=== PATIENT | female | born 1950 | race Caucasian/White ===

== ENCOUNTER → 2018-07-12 | Outpatient (CLI) | payer MEDICARE, OTHER ==
--- NOTE | 2018-07-19 14:15 | HM ---
HOLTER MONITOR REPORT Patient was monitored for 24 hours. Baseline rhythm is a sinus mechanism with normal conduction. The average rate 59 beats per minute, minimum of 38, maximum 105 beats per minute. Ventricular ectopic activity was present in the form of rare single PVCs. Supraventricular ectopic activity was present in the form of rare single PACs. Symptoms of heartburn, pain in the upper area, indigestion, did not correlate with any dysrhythmia. CONCLUSION: 1. Sinus mechanism baseline rhythm. 2. Rare ventricular ectopic activity. 3. Rare supraventricular ectopic activity. 4. Symptoms did not correlate with any dysrhythmia. MMODL / IJN: [id number] /
== END | disposition home or self-care (01) ==
LOC: RADECHMAIN 12:18
PROVIDERS: ATTEND Family Medicine
DX: R00.1 Bradycardia, unspecified (principal)
CPT/HCPCS: 93225; 93226

== ENCOUNTER → 2019-10-08 | Outpatient (CLI) | payer MEDICARE, OTHER | END | disposition home or self-care (01) | LOC: LABWHC1 13:49 | PROVIDERS: ATTEND Family Medicine | DX: U07.1 COVID-19 (principal) ==

== ENCOUNTER → 2020-09-24 | Outpatient (CLI) | payer MEDICARE, OTHER | END | disposition home or self-care (01) | LOC: RADCTMAIN 16:52 | PROVIDERS: ATTEND Internal Medicine Critical Care Medicine | DX: Z53.9 Procedure and treatment not carried out, unspecified reason (principal) ==

== ENCOUNTER → 2020-09-28 | Outpatient (CLI) | payer MEDICARE, OTHER ==
[2020-09-28 13:57] LABS: African American GFR (CKD) >90 (>60 ml/min/1.73 sqM); Blood Urea Nitrogen 17 mg/dL (7-17); Non-African American GFR(CKD) 90 (>60 ml/min/1.73 sqM)
--- NOTE | 2020-09-28 15:24 | CT ---
EXAMINATION TYPE: CT soft tissue neck w con DATE OF EXAM: 09/28/2020 HISTORY: right side neck mass COMPARISON: NONE CT DLP: 316.6 mGycm. Automated Exposure Control for Dose Reduction was Utilized. TECHNIQUE: CT scan of the neck is performed with IV Contrast, patient injected with 100 mL of Isovue 300, axial images are obtained, coronal and sagittal reformatted images are reviewed. FINDINGS: Airway: Mild to moderate biapical pleural/parenchymal scarring.. Parotid/submandibular glands: Metallic BB placed at level of palpable abnormality right submandibular gland/56. This appears symmetric while the left side and normal in size. No surrounding fat strandin g or inflammatory change. No adjacent concerning solid or cystic mass or fluid collection. Carotid/Vascular Structures: No significant plaque or stenosis carotid bulb level. Osseous Structures: Mild to moderate spurring and disc space narrowing C5-C6 level. Grade 1 anterolis thesis C3 on C4. Moderate disc space narrowing C5-C6 level. Mild anterior spurring C6-C7 level. Other: No suspicious greater than 1 cm neck adenopathy. Scattered subcentimeter lymph nodes throughou t the neck bilaterally. IMPRESSION: No suspicious mass or adenopathy.
== END | disposition home or self-care (01) ==
LOC: RADCTMAIN 13:03
PROVIDERS: ATTEND Internal Medicine Critical Care Medicine
DX: N28.89 Other specified disorders of kidney and ureter (principal)
CPT/HCPCS: 82565; 84520; 70491; Q9967

== ENCOUNTER → 2020-11-07 | Outpatient (CLI) | payer MEDICARE, OTHER ==
--- NOTE | 2020-11-07 15:41 | XR ---
EXAMINATION TYPE: XR shoulder complete LT, 3 views DATE OF EXAM: 11/07/2020 Comparison: None Clinical History: 69-year-old female Left Shoulder Pain Findings: Degenerative joint space narrowing and marginal spurring at the acromioclavicular joint. Subacromial space is preserved. No tendinous or bursal calcifications. No acute fracture, subluxation, or disloca tion. Visualized left hemithorax is clear. 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 No acute osseous abnormality seen.
== END | disposition home or self-care (01) ==
LOC: RADXRMAIN 09:56
PROVIDERS: ATTEND Family Medicine
DX: M19.012 Primary osteoarthritis, left shoulder (principal)

== ENCOUNTER → 2021-02-24 | Outpatient (CLI) | payer MEDICARE, OTHER ==
--- NOTE | 2021-02-24 11:25 | NM ---
EXAMINATION TYPE: NM stress cardiolite complete DATE OF EXAM: 02/24/2021 COMPARISON: NONE HISTORY: Chest pain TECHNIQUE: After the intravenous administration of 9.4 mCi Tc 99m Sestamibi - Rest images obtained 5 5 minutes post injection. The patient exercised using a OLIVIA protocol and 1 minute prior to peak e xercise was injected with 25.3 mCi Tc 99m Sestamibi - Stress images obtained 15 minutes post injectio n. FINDINGS: Targeted heart rate was achieved during performance of the study. Review of stress and rest SPECT barney ges demonstrates no distinct perfusion abnormality. Gated analysis shows normal wall motion with an estimated left ventricular ejection fraction of 63 %. IMPRESSION: No scintigraphic evidence for reversible ischemia
--- NOTE | 2021-02-24 12:17 | P.STRESS ---
- Stress Test Note Stress Test Results/Findings: Exam Performed: NM stress cardiolite complete Exam Date: 02/24/21 Reason for Exam: CP Height: 5 ft 6 in Weight: 60.781 kg Protocol: CARDIOLITE STRESS Stage: 3 Duration of Exercise: 8:30 Resting Heart Rate: 53 Resting Blood Pressure: 111/69 Maximum Achieved Heart Rate: 130 Maximum Achieved Blood Pressure: 179/88 85% PMHR: 126 100% PMHR: 148 METS: 9.1 Technologist Comment: Stress Test Results/Findings: Baseline heart rate 53 beats a minute, Baseline blood pressure 111/69 mmHg Patient exercised on a Tariq protocol for atrial half minutes achieving a peak heart rate of 130 beats a minute line normal blood pressure response to exercise Twelve-lead EKG showed sinus rhythm normal [place] narrow QRS normal ST segments There was no ECG evidence for ischemia No arrhythmias noted No symptoms noted Impression no ECG evidence for ischemia Patient exercised on a Tariq protocol for atrial half minutes
--- NOTE | 2021-02-25 11:25 | EST ---
Stress Test Results/Findings: Exam Performed: NM stress cardiolite complete Exam Date: 02/24/21 Reason for Exam: CP Height: 5 ft 6 in Weight: 60.781 kg Protocol: CARDIOLITE STRESS Stage: 3 Duration of Exercise: 8:30 Resting Heart Rate: 53 Resting Blood Pressure: 111/69 Maximum Achieved Heart Rate: 130 Maximum Achieved Blood Pressure: 179/88 85% PMHR: 126 100% PMHR: 148 METS: 9.1 Technologist Comment: Stress Test Results/Findings: Baseline heart rate 53 beats a minute, Baseline blood pressure 111/69 mmHg Patient exercised on a Tariq protocol for atrial half minutes achieving a peak heart rate of 130 beats a minute line normal blood pressure response to exercise Twelve-lead EKG showed sinus rhythm normal FL narrow QRS normal ST segments There was no ECG evidence for ischemia No arrhythmias noted No symptoms noted Impression no ECG evidence for ischemia Patient exercised on a Tariq protocol for atrial half minutes MTDD
== END | disposition home or self-care (01) ==
LOC: RADNMMAIN 08:18
PROVIDERS: ATTEND Family Medicine
DX: R07.9 Chest pain, unspecified (principal)
CPT/HCPCS: 93017; 78452; A9500

== ENCOUNTER 2023-01-12 10:36 | Day surgery (SDC) | payer MEDICARE, OTHER ==
[2023-01-11 08:54] VITALS: BMI 21.1
[~2023-01-12 10:36] MED LIST: ATROPINE SULFATE 0.4 MG/ML 1 ML VIAL IM ONE; LACTATED RINGERS 1,000 ML IV SCH; LIDOCAINE 1% (10MG/ML) FOR IV START INTRADERMA PRN; MIDAZOLAM 2 MG/2 ML VIAL IV PRN; ONDANSETRON 4 MG/2 ML VIAL IVP PRN
[2023-01-12 11:09] VITALS: TEMP 98
[2023-01-12] MEDS ORDERED: PROPOFOL 10 MG/ML 20 ML VIAL IV ONE (11:33)
[2023-01-12 12:09] VITALS: RESP 18
[2023-01-12 12:23] VITALS: BP 107/65; PULSE 51
--- NOTE | 2023-01-12 13:27 | PCN ---
PROCEDURE NOTE PROCEDURE PERFORMED: Bronchoscopy, airway examination, therapeutic lavage. PREOPERATIVE DIAGNOSIS: Aspiration of a foreign body/medication pill. POSTOPERATIVE DIAGNOSIS: Aspiration of a foreign body/medication pill. OPERATORS: Dr. Mack and Dr. Russell. There was informed consent and universal timeout. ANESTHESIA PROVIDED: General anesthesia. The patient's procedure took place in room #2, [facility]. DESCRIPTION OF PROCEDURE: After the patient was adequately sedated and being fully monitored, the bronchoscope was inserted through the right nostril. It passed through the right nasopharynx into the oropharynx. The hypopharynx was identified. The hypopharyngeal structures including anterior commissure, true cords, false cords, arytenoids right and left, piriform sinuses right and left, vallecula, and epiglottis, all appeared normal. There was no foreign body noted in the hypopharynx. The glottic opening was topicalized. The bronchoscope was pushed through the glottic opening into the trachea. The trachea appeared normal. There was no foreign body in the trachea. Tracheal preethi was sharp. Right and left mainstem were topicalized. Right upper lobe and its 3 segments, the right middle lobe and its 2 segments, the right lower lobe and its 5 segments, the left upper lobe proper and its 2 segments, the lingula and its 2 segments, and the left lower lobe and its 4 segments were carefully evaluated and observed. There were minimal secretions. There was no dominant mass or tumor. There was no foreign body noted. There was no bleeding. In essence, this is a normal airway examination. No samples were taken. The patient tolerated the procedure well. The bronchoscope was withdrawn. The patient will be recovered. There was no immediate complication. MMODL / IJN: [id number] /
== END 2023-01-12 12:40 | disposition home or self-care (01) ==
LOC: ORWHC2ENDO 10:36
PROVIDERS: ATTEND Internal Medicine Critical Care Medicine
DX: R09.89 Other specified symptoms and signs involving the circulatory and respiratory systems (principal); I48.91 Unspecified atrial fibrillation; E78.5 Hyperlipidemia, unspecified; K21.9 Gastro-esophageal reflux disease without esophagitis; E07.9 Disorder of thyroid, unspecified; Z88.5 Allergy status to narcotic agent; Z88.6 Allergy status to analgesic agent; Z79.51 Long term (current) use of inhaled steroids; Z79.899 Other long term (current) drug therapy; Z79.890 Hormone replacement therapy; Z88.8 Allergy status to other drugs, medicaments and biological substances; Z90.710 Acquired absence of both cervix and uterus; Z90.49 Acquired absence of other specified parts of digestive tract
CPT/HCPCS: 31622; J2704; 31645

== ENCOUNTER 2023-08-08 05:50 | Day surgery (SDC) | payer MEDICARE, OTHER ==
[2023-08-07 10:33] VITALS: BMI 21.2
[2023-08-08] MEDS ORDERED: LACTATED RINGERS 1,000 ML IV SCH (06:03)
[2023-08-08] MEDS: LACTATED RINGERS 1,000 ML IV ONE ×2 (06:40→06:59)
[2023-08-08 06:44] VITALS: TEMP 98
[2023-08-08 06:57] LABS: Glucose,Whole Blood 88 mg/dL (70-110)
[2023-08-08] MEDS ORDERED: PROPOFOL 10 MG/ML 20 ML VIAL IV ONE (07:07)
--- NOTE | 2023-08-08 07:26 | P.PCN ---
Date of Procedure: 08/08/23 Procedure(s) Performed: Brief history: Patient is a pleasant 72-year-old white femalescheduled for an elective upper endoscopy as well as colonoscopy as a part of evaluation ofGERD and prior history of colon polyps Procedure performed: Esophagogastroduodenoscopy with biopsy Colonoscopy Preoperative diagnosis: GERD/epigastric pain History of colon polyps Anesthesia: MAC Procedure: After informed consent was obtained from the patient was brought into the endoscopy unit and IV sedation was administered by anesthesia under continuous monitoring. Initially upper endoscopy was done. The Olympus GF 160 video endoscope was inserted inserted into the mouth and esophagus intubated without any difficulty and was gradually advanced into the stomach and duodenum and carefully examined. The bulb and second part of the duodenum appeared normal. The scope was then withdrawn into the stomach adequately insufflated with air and upon careful examination the antrum had mild gastritis and biopsies were done from this area. Mucosa of the body, cardia and fundus appeared normal. The scope was then withdrawn into the esophagus. The GE junction was located at 40 cm to the incisors. It appeared regular with no erythema erosions or ulcerations. Rest of the esophagus appeared normal. abscesses were done from the distal esophagus. Patient tolerated the procedure well. At this time the patient continued to remain sedation. Initial digital rectal examination was normal. Olympus CF 160 video colonoscope was then inserted into the rectum and gradually advanced to the cecum without any difficulty. Careful examination was performed as the scope was gradually being withdrawn. The prep was excellent. The cecum, ascending colon, transverse colon, descending colon, sigmoid colon and rectum appeared normal.scattered sigmoid diverticulosis. Retroflexion was performed in the rectum and no lesions were noted. Patient tolerated the procedure well. Impression: 1. Upper endoscopy revealed mild antral gastritis but no evidence of esophagitis or peptic ulcer disease 2. Colonoscopy revealed scattered sigmoid diverticulosis but no evidence of colorectal neoplasia Recommendations: Findings of this examination were discussed with the patient as well as her family. She was advised to follow with the biopsy results. Continue with current medications and follow antireflux measures. Recommend repeat colonoscopy at age 78.
[2023-08-08 07:48] LABS: Glucose,Whole Blood 92 mg/dL (70-110)
[2023-08-08 08:03] VITALS: BP 120/69; PULSE 50; RESP 15
== END 2023-08-08 08:11 | disposition home or self-care (01) ==
LOC: ORWHC2ENDO 05:50
PROVIDERS: ATTEND Internal Medicine Gastroenterology
DX: K57.30 Diverticulosis of large intestine without perforation or abscess without bleeding (principal); K29.50 Unspecified chronic gastritis without bleeding; K21.9 Gastro-esophageal reflux disease without esophagitis; Z86.010 Personal history of colon polyps; E78.5 Hyperlipidemia, unspecified; J45.909 Unspecified asthma, uncomplicated; E07.9 Disorder of thyroid, unspecified; Z79.890 Hormone replacement therapy; Z79.899 Other long term (current) drug therapy; Z88.5 Allergy status to narcotic agent; Z88.6 Allergy status to analgesic agent; Z91.041 Radiographic dye allergy status; Z87.891 Personal history of nicotine dependence
CPT/HCPCS: 88305; 45378; 43239; J2704

== ENCOUNTER → 2023-09-06 | Outpatient (CLI) | payer MEDICARE ==
[2023-09-06 10:43] VITALS: BP 107/51; PULSE 74; RESP 16; TEMP 97.9
--- NOTE | 2023-09-06 13:13 | P.HPOB ---
History of Present Illness H&P Date: 09/06/23 Chief Complaint: The patient is here for her routine gynecologic exam. This is a 72-year-old -0-1-0 with an LMP of 1997. Patient is here to establish with this office. It has been about 1 year since her last pelvic exam. She previously saw Dr. Young for her ongoing gynecologic care. She is status post LYNNE/BSO for benign reasons. She is without gynecologic complaints. 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 She was hospitalized for this. She was initially put on suppressive Valtrex therapy once a day, but she did have another severe outbreak and she has been on Valtrex 500 mg twice daily for several years and this has successfully suppressed the HSV. Review of Systems The patient's weight has been stable over the last year. She denies respiratory, cardiac, or G.I. problems. 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 Cough variant asthma, Hiatal hernia, gastritis, lumbar scoliosis. 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 No other history of STDs. History of Any Multi-Drug Resistant Organisms: None Reported Past Surgical History: Appendectomy, Back Surgery, Hysterectomy, Tonsillectomy Additional Past Surgical History / Comment(s): LYNNE/BSO 1997. DISCECTOMY back surgery. VTP. Colonoscopy with upper endoscopy 08/08/2023(next at age 78). Past Anesthesia/Blood Transfusion Reactions: No Reported Reaction Additional Past Anesthesia/Blood Transfusion Reaction / Comment(s): no hx blood transfusion Past Psychological History: Anxiety Additional Psychological History / Comment(s): NO MEDS FOR ANXIETY Smoking Status: Former smoker, Second hand smoke exposure Past Alcohol Use History: Rare (1 drink per year.) Additional Past Alcohol Use History / Comment(s): SMOKED FOR A SHORT TIME FROM AGE [age], SMOKES. Past Drug Use History: None Reported Additional History: She has been since 1984. 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 [employer] - Past Family History Mother Family Medical History: Cancer, Coronary Artery Disease (CAD), Hypertension, Myocardial Infarction ([place]), Osteoarthritis (OA) Additional Family Medical History / Comment(s): Esophageal,LUNG Father Family Medical History: Coronary Artery Disease (CAD), Hypertension, Myocardial Infarction ([place]), Osteoarthritis ([place]) Additional Family Medical History / Comment(s): pacermaker,cabg Brother(s) Family Medical History: Myocardial Infarction ([place]) Medications and Allergies Home Medications Medication Instructions Recorded Confirmed Type Acetaminophen [Tylenol Extra 0.25 tab PO HS 01/11/23 09/06/23 History Strength] Ascorbic Acid [Vitamin C] 500 mg PO DAILY 01/11/23 09/06/23 History Dorzolamide 2% [Trusopt 2%] 1 drops LEFT EYE BID 01/11/23 09/06/23 History Ergocalciferol [Vitamin D2 (1250 1,250 mcg PO TU 01/11/23 09/06/23 History Mcg = 98168 Iu)] Levothyroxine Sodium [Synthroid] 88 mcg PO QAM 01/11/23 09/06/23 History Montelukast [Singulair] 10 mg PO HS 01/11/23 09/06/23 History Multivit with Calcium,Iron,Min 1 each PO DAILY 01/11/23 09/06/23 History [Women's Multivitamin] [place]-3 Fatty Acids [[place]-3] 1,000 mg PO DAILY 01/11/23 09/06/23 History Zinc Gluconate [Zinc] 50 mg PO DAILY 01/11/23 09/06/23 History gemfibroziL [Lopid] 600 mg PO DAILY 01/11/23 09/06/23 History Albuterol Inhaler [Ventolin Hfa 1 - 2 puff INHALATION Q6H PRN 08/07/23 09/06/23 History Inhaler] Bacillus Coagulans [Probiotic] 1 dose PO DAILY 08/07/23 09/06/23 History Omeprazole [PriLOSEC] 20 mg PO AC-BID 08/07/23 09/06/23 History polyethylene glycoL 3350 [Miralax] 17 gm PO DAILY 08/07/23 09/06/23 History valACYclovir HCL [Valacyclovir] 500 mg PO BID 08/07/23 09/06/23 History Allergies Allergy/AdvReac Type Severity Reaction Status Date / Time aspirin AdvReac HX Verified 09/06/23 09:57 duodenal ulcer Iodinated Contrast Media AdvReac SHAKING, Verified 09/06/23 09:57 CRYING, HYPERVENTILATING morphine AdvReac SEVERE Verified 09/06/23 09:57 HEADACHE Exam Vital Signs Temp Pulse Resp BP Pulse Ox 09/06/23 09:58 97.9 F 74 16 107/51 98 Intake and Output 09/05/23 09/06/23 09/06/23 22:59 06:59 14:59 Other: Weight 62.596 kg Height 5 feet 6 inches, weight 138 pounds, BMI 22.3. This is a well-developed well-nourished white female who is alert and oriented times 3 in no acute distress. HEENT: Within normal limits. NECK: Supple without mass or thyromegaly. CHEST AND LUNGS: Clear to auscultation. HEART: Regular rate and rhythm. BREASTS: Are without mass or discharge. AXILLARY EXAM: Negative for adenopathy. BACK: Negative for CVA tenderness. ABDOMEN: Soft, nontender, without palpable masses. PELVIC EXAM: External genitalia appears normal with mild to moderate atrophy. Vagina appears normal with mild to moderate atrophy. There is no evidence of prolapse. Bimanual examination is negative for mass or tenderness. RECTAL EXAM: Rectovaginal exam is negative for mass or tenderness and is negative for occult blood. EXTREMITIES: Nontender. IMPRESSION: 1. 72-year-old menopausal female status post LYNNE/BSO for benign reasons, with normal gynecologic exam. 2. History of genital HSV with severe outbreaks that are now controlled with Valtrex 500 mg twice daily. PLAN: 1. Pap smears have been discontinued. 2. Self breast awareness was discussed with the patient. We have also discussed symptoms associated with inflammatory breast cancer. 3. Screening mammogram will be due after 10/14/2023 and the order slip was given to the patient for this. Her previous mammograms were done at [facility], but she states she would like to start to do them at [facility]. 4. Osteoporosis prevention was discussed. I have stressed the importance of adequate calcium, vitamin D and regular exercise. Recommended amounts of calcium and vitamin D were also discussed. She states she had a normal bone density test more than 5 years ago at [facility]. I have recommended that she do another bone density test since it has been more than 5 years. The order slip was given to the patient for this. She states she will have this done at [facility]. 5. Continue Valtrex 500 mg twice daily. She gets this prescription from her PCP and will continue to have him prescribe it. 6. She was advised to return in one year for her annual well woman exam.
== END ==
LOC: WWCWWP 09:43
PROVIDERS: ATTEND Obstetrics & Gynecology
DX: Z01.419 Encounter for gynecological examination (general) (routine) without abnormal findings (principal); A60.09 Herpesviral infection of other urogenital tract; Z78.0 Asymptomatic menopausal state; Z90.710 Acquired absence of both cervix and uterus; Z90.722 Acquired absence of ovaries, bilateral; Z79.624 Long term (current) use of inhibitors of nucleotide synthesis; Z88.6 Allergy status to analgesic agent; Z91.041 Radiographic dye allergy status; Z88.5 Allergy status to narcotic agent; Z87.891 Personal history of nicotine dependence

== ENCOUNTER → 2023-10-16 | Outpatient (CLI) | payer MEDICARE ==
--- NOTE | 2023-10-17 07:45 | BD ---
EXAMINATION TYPE: Axial Bone Density DATE OF EXAM: 10/16/2023 CLINICAL HISTORY: 72 years old Female. ICD-10 CODE: Z78.0 ASYMPTOMATIC MENOPAUSAL Height: 65.5in Weight: 135lb FRAX RISK QUESTIONS: Secondary Osteoporosis: RISK FACTORS HISTORY OF: Surgery to Spine/Hip(right/left)/Wrist (right/left): laminectomy and discectomy to lumbar spine When: over 10 years ago MEDICATIONS: Thyroid Medications: Which medication: Levothyroxine How Lon years EXAM MEASUREMENTS: Bone mineral densitometry was performed using the [employer]. Bone mineral density about the R hip (g/cm2): 0.871 Bone mineral density about the L hip (g/cm2): 0.848 T Score values are as follows: -----R Neck: -1.0 -----L Neck: -1.3 -----R Total: -1.1 -----L Total: -1.3 Z Score values are as follows: -----R Neck: 1.0 -----L Neck: 0.7 -----R Total: 0.7 -----L Total: 0.5 First dexa at [facility] FRAX%s: The graph provided illustrates a 9.6% chance for a major osteoporotic fx and a 1.8% chance fo r the hips probability for fx in 10 years time. IMPRESSION: Osteopenia (T Score between -2.5 and -1). There is slightly increased risk of fracture and the patient may be considered for treatment. Re-Screen 2-5 years. NOTE: T-SCORE=SD OF THE YOUNG ADULT MEAN.
--- NOTE | 2023-10-17 08:03 | MM ---
Reason for Exam: Screening (asymptomatic). Last screening mammogram was performed 12 month(s) ago. Patient History: Menarche at age 11. Patient has no children. Left ovary removed at age 47. Right ovary removed at age 47. Hysterectomy at age 47. Postmenopausal. Risk Values: Eli 5 year model risk: 2.0%. NCI Lifetime model risk: 4.5%. Prior Study Comparison: 10/12/2021 Bilateral Screening Mammogram, [facility]. 10/13/2022 Bilateral Screening Mammogram, [facility]. Tissue Density: The breasts are heterogeneously dense, which may obscure small masses. Findings: Analyzed By CAD. No suspicious grouped calcifications or architectural distortion. 4 mm nodule outer margin left breast not seen on prior exams. Possibly related to a lymph node. Recommend ultrasound. Overall Assessment: Incomplete: need additional imaging evaluation, BI-RAD 0 Management: Diagnostic Mammogram of the left breast. . Patient should continue monthly self-breast exams. A clinical breast exam by your physician is recommended on an annual basis. This exam should not preclude additional follow-up of suspicious palpable abnormalities. Note on Eli scores and lifetime risk: 1. A Eli score greater than 3% is considered moderate risk. If this is the case, consider specialist referral to assess eligibility for a risk reducing agent. 2. If overall lifetime risk for the development of breast cancer is 20% or higher, the patient may qualify for future screening with alternating mammogram and breast MRI. Electronically signed and approved by: Zan Eugene M.D. Radiologis
--- NOTE | 2023-10-18 09:02 | P.PN ---
Progress Note - Text Progress Note Date: 10/18/23 OUTPATIENT FOLLOW-UP NOTE TEST(S)/RESULTS: Bone density test done on 10/16/2023 shows osteopenia. METHOD OF NOTIFICATION: A message with this result was left on the patient's voicemail on 10/18/2023. PATIENT COMMENTS: DIAGNOSIS: Osteopenia. DISCUSSION: In her message I did indicate that I am not suggesting medication at this time. I have stressed the importance of adequate calcium, vitamin D, and regular exercise. We will plan on repeating this in the about 2 to 3 years. She was instructed to call the [facility] if she has any questions about this. The patient has made an appointment for a left breast workup after her screening mammogram that was also done on 10/16/2023. PLAN: As above. Await left breast workup which is scheduled for 10/18/2023.
== END | disposition home or self-care (01) ==
LOC: RADMAMWWP 12:25
PROVIDERS: ATTEND Obstetrics & Gynecology
DX: Z12.31 Encounter for screening mammogram for malignant neoplasm of breast (principal); M85.89 Other specified disorders of bone density and structure, multiple sites; Z78.0 Asymptomatic menopausal state
CPT/HCPCS: 77063; 77067; 77080

== ENCOUNTER → 2023-10-18 | Outpatient (CLI) | payer MEDICARE ==
--- NOTE | 2023-10-19 12:07 | USB ---
Reason for Exam: Additional evaluation requested from abnormal screening. Patient History: Menarche at age 11. Patient has no children. Left ovary removed at age 47. Right ovary removed at age 47. Hysterectomy at age 47. Postmenopausal. Risk Values: Eli 5 year model risk: 2.0%. NCI Lifetime model risk: 4.5%. Technique: Method: Targeted. Doppler: Color. Patient Position: Supine. Prior Study Comparison: 10/12/2021 Bilateral Screening Mammogram, [facility]. 10/13/2022 Bilateral Screening Mammogram, [facility]. 10/16/2023 Bilateral MG 3D screening mammo w/cad, [facility]. Findings: The upper outer quadrant of the left breast, the axilla of the left breast and the retroareolar of the left breast were scanned. Small intramammary lymph node is noted measuring 6 x 6 mm. No solid mass is detected. Overall Assessment: Benign, BI-RAD 2 Management: Screening Mammogram of both breasts in 1 year. A clinical breast exam by your physician is recommended on an annual basis and results should be correlated with mammographic findings. This exam should not preclude additional follow-up of suspicious palpable abnormalities. Results were given to the patient verbally at the time of exam. Electronically signed and approved by: Paul Berry M.D. Radiologis
== END | disposition home or self-care (01) ==
LOC: RADMAMWWP 14:05
PROVIDERS: ATTEND Obstetrics & Gynecology
DX: R92.8 Other abnormal and inconclusive findings on diagnostic imaging of breast (principal); Z78.0 Asymptomatic menopausal state

== ENCOUNTER → 2024-03-11 | Outpatient (CLI) | payer MEDICARE ==
[2024-03-11 15:33] LABS: BUN/Creat Ratio 20.78 Ratio (12.00-20.00); Blood Urea Nitrogen 18.7 mg/dL (9.0-27.0); Calcium 9.8 mg/dL (8.7-10.3); Carbon Dioxide 26.4 mmol/L (21.6-31.8); Chloride 104 mmol/L (96-109); Chol/HDL Ratio 3.15 Ratio; Glucose 99 mg/dL (70-110); LDL Cholesterol,Calculated 147.9 mg/dL (0.0-131.0); Potassium 4.3 mmol/L (3.5-5.5); Sodium 141 mmol/L (135-145); T4, Free (Free Thyroxine) 1.32 ng/dL (0.80-1.80); VLDL Calculation 9.02 mg/dL (5.00-40.00)
== END | disposition home or self-care (01) ==
LOC: LABWHC1 09:59
PROVIDERS: ATTEND Internal Medicine
DX: E03.9 Hypothyroidism, unspecified (principal); E78.5 Hyperlipidemia, unspecified; E55.9 Vitamin D deficiency, unspecified; R73.03 Prediabetes
CPT/HCPCS: 36415; 80048; 80061; 82306; 83036; 84439; 84443

== ENCOUNTER → 2024-10-29 | Outpatient (CLI) | payer MEDICARE ==
[2024-10-29 14:49] VITALS: BP 129/66; PULSE 55; RESP 16; TEMP 98.2
--- NOTE | 2024-10-29 15:25 | P.HPOB ---
History of Present Illness H&P Date: 10/29/24 Chief Complaint: The patient is here for her routine gynecologic exam and ma mmogram. This is a 73-year-old -0-1-0 with an LMP of 1997. Patient is without gynecologic complaints and denies any postmenopausal bleeding. She has not had any HSV outbreaks since her PCP started her on Valtrex 500 mg twice daily. Review of Systems The patient's weight has been stable over the last year. She denies respiratory, cardiac, or G.I. problems. 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 Cough variant asthma, Hiatal hernia, gastritis, lumbar scoliosis. 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 No other history of STDs. History of Any Multi-Drug Resistant Organisms: None Reported Past Surgical History: Appendectomy, Back Surgery, Hysterectomy, Tonsillectomy Additional Past Surgical History / Comment(s): LYNNE/BSO 1997. DISCECTOMY back surgery. VTP. Colonoscopy with upper endoscopy 08/08/2023(next at age 78). Past Anesthesia/Blood Transfusion Reactions: No Reported Reaction Additional Past Anesthesia/Blood Transfusion Reaction / Comment(s): no hx blood transfusion Past Psychological History: Anxiety Additional Psychological History / Comment(s): NO MEDS FOR ANXIETY Smoking Status: Former smoker, Second hand smoke exposure Past Alcohol Use History: Rare (0-1 drink per year.) Additional Past Alcohol Use History / Comment(s): SMOKED FOR A SHORT TIME FROM AGE [age], SMOKES. Past Drug Use History: None Reported Additional History: She has been since 1984 and is not sexually active. 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 - Past Family History Mother Family Medical History: Cancer, Coronary Artery Disease (CAD), Hypertension, Myocardial Infarction ([place]), Osteoarthritis (OA) Additional Family Medical History / Comment(s): Esophageal,LUNG Father Family Medical History: Coronary Artery Disease (CAD), Hypertension, Myocardial Infarction ([place]), Osteoarthritis (OA) Additional Family Medical History / Comment(s): pacermaker,cabg Brother(s) Family Medical History: Myocardial Infarction ([place]) Medications and Allergies Home Medications Medication Instructions Recorded Confirmed Type Acetaminophen [Tylenol Extra 0.25 tab PO HS 01/11/23 10/29/24 History Strength] Ascorbic Acid [Vitamin C] 500 mg PO DAILY PRN 01/11/23 10/29/24 History Dorzolamide 2% [Trusopt 2%] 1 drops LEFT EYE BID 01/11/23 10/29/24 History Ergocalciferol [Vitamin D2 (1250 1,250 mcg PO TU 01/11/23 10/29/24 History Mcg = 52410 Iu)] Levothyroxine Sodium [Synthroid] 88 mcg PO QAM 01/11/23 10/29/24 History Montelukast [Singulair] 10 mg PO HS 01/11/23 10/29/24 History Multivit with Calcium,Iron,Min 1 each PO DAILY 01/11/23 10/29/24 History [Women's Multivitamin] Arcadia-3 Fatty Acids [Arcadia-3] 1,000 mg PO DAILY 01/11/23 10/29/24 History Zinc Gluconate [Zinc] 50 mg PO DAILY PRN 01/11/23 10/29/24 History gemfibroziL [Lopid] 600 mg PO DAILY 01/11/23 10/29/24 History Albuterol Inhaler [Ventolin Hfa 1 - 2 puff INHALATION Q6H PRN 08/07/23 10/29/24 History Inhaler] Omeprazole [PriLOSEC] 20 mg PO AC-BID 08/07/23 10/29/24 History polyethylene glycoL 3350 [Miralax] 17 gm PO DAILY PRN 08/07/23 10/29/24 History valACYclovir HCL [Valacyclovir] 500 mg PO BID 08/07/23 10/29/24 History Allergies Allergy/AdvReac Type Severity Reaction Status Date / Time aspirin AdvReac HX Verified 10/29/24 14:37 duodenal ulcer Iodinated Contrast Media AdvReac SHAKING, Verified 10/29/24 14:37 CRYING, HYPERVENTILATING morphine AdvReac SEVERE Verified 10/29/24 14:37 HEADACHE Exam Vital Signs Temp Pulse Resp BP Pulse Ox 10/29/24 14:42 98.2 F 55 L 16 129/66 92 L Intake and Output 10/29/24 10/29/24 10/29/24 06:59 14:59 22:59 Other: Weight 61.689 kg Height 5 feet 6 inches, weight 136 pounds, BMI 22.0. This is a well-developed well-nourished white female who is alert and oriented times 3 in no acute distress. HEENT: Within normal limits. NECK: Supple without mass or thyromegaly. CHEST AND LUNGS: Clear to auscultation. HEART: Regular rate and rhythm. BREASTS: Are without mass or discharge. AXILLARY EXAM: Negative for adenopathy. BACK: Negative for CVA tenderness. ABDOMEN: Soft, nontender, without palpable masses. PELVIC EXAM: External genitalia appears normal with moderate atrophy. Vagina appears normal with mild to moderate atrophy. There is no evidence of prolapse. Bimanual examination is negative for mass or tenderness. RECTAL EXAM: Rectovaginal exam is negative for mass or tenderness and is negative for occult blood. EXTREMITIES: Nontender. IMPRESSION: 1. 73-year-old menopausal female status post LYNNE/BSO for benign reasons, with normal gynecologic exam. 2. History of genital HSV with frequent outbreaks that are now controlled with the Valtrex 500 mg twice daily. 3. History of osteopenia. PLAN: 1. Pap smears have been discontinued. 2. Self breast awareness was discussed with the patient. We have also discussed symptoms associated with inflammatory breast cancer. 3. Screening mammogram will be done today. 4. Osteoporosis prevention was discussed. I have stressed the importance of adequate calcium, vitamin D and regular exercise. Recommended amounts of calcium and vitamin D were also discussed. Will plan on repeating bone density test in 1 year. 5. She will continue to get her prescription for Valtrex through her PCP. I have recommended that she consider trying to wean down to Valtrex once daily. She will discuss this with her PCP. 6. She was advised to return in one year for her annual well woman exam.
--- NOTE | 2024-10-30 07:47 | MM ---
Reason for Exam: Screening (asymptomatic). Last screening mammogram was performed 12 month(s) ago. Patient History: Menarche at age 11. Patient has no children. Left ovary removed at age 47. Right ovary removed at age 47. Hysterectomy at age 47. Postmenopausal. Risk Values: Eli 5 year model risk: 2.0%. NCI Lifetime model risk: 4.2%. Prior Study Comparison: 10/12/2021 Bilateral Screening Mammogram, [facility]. 10/13/2022 Bilateral Screening Mammogram, [facility]. 10/16/2023 Bilateral MG 3D screening mammo w/cad, [facility]. Tissue Density: There are scattered areas of fibroglandular density. Findings: Analyzed By CAD. Right breast: There is no suspicious group of microcalcifications or new suspicious mass. Left breast: There is no suspicious group of microcalcifications or new suspicious mass. Overall Assessment: Negative, BI-RAD 1 Management: Screening Mammogram of both breasts in [address] [facility] will attempt to contact patient to return for supplemental views and ultrasound if indicated. Patient should continue monthly self-breast exams. A clinical breast exam by your physician is recommended on an annual basis. This exam should not preclude additional follow-up of suspicious palpable abnormalities. Note on Eli scores and lifetime risk: 1. A Eli score greater than 3% is considered moderate risk. If this is the case, consider specialist referral to assess eligibility for a risk reducing agent. 2. If overall lifetime risk for the development of breast cancer is 20% or higher, the patient may qualify for future screening with alternating mammogram and breast MRI. [facility], , 10/30/2024 7:43 AM. Electronically signed and approved by: Gabriel Mclean DO
== END ==
LOC: WWCWWP 13:56
PROVIDERS: ATTEND Obstetrics & Gynecology
DX: Z01.419 Encounter for gynecological examination (general) (routine) without abnormal findings (principal); Z12.31 Encounter for screening mammogram for malignant neoplasm of breast; Z87.39 Personal history of other diseases of the musculoskeletal system and connective tissue; Z90.710 Acquired absence of both cervix and uterus; Z87.42 Personal history of other diseases of the female genital tract; Z79.624 Long term (current) use of inhibitors of nucleotide synthesis; Z87.891 Personal history of nicotine dependence; Z88.5 Allergy status to narcotic agent; Z88.6 Allergy status to analgesic agent; Z91.041 Radiographic dye allergy status; Z78.0 Asymptomatic menopausal state
CPT/HCPCS: 77063; 77067